=== PATIENT | male | born 1970 | race African-American/Black ===

== ENCOUNTER 2018-09-21 08:14 | Inpatient (IN) ==
[~2018-09-21 08:14] MED LIST: ceFAZolin 1,000 MG VIAL ONE; ceFAZolin 1,000 MG in SYRINGE 1 EACH IV ONE
[2018-09-21 08:37] LABS: Basophils # 0.1 10*3/uL (0.0-0.2); Basophils % 0.7 % (0.0-0.8); Eosinophils # 0.6 10*3/uL (0.0-0.87); Eosinophils % 6.4 % (0.00-10.9); Hematocrit 29.9 VOL% (42.0-52.0); Hemoglobin 9.2 GM/DL (14.0-18.0); Immature Granulocytes % 0.5 %; Immature Granulocytes Absolute 0.04 #; Lymphocytes # 1.2 10*3/uL (1.4-4.0); Lymphocytes % 13.2 % (21.2-54.2); Mean Corpuscular HGB Conc 30.8 GM/DL (32-36); Mean Corpuscular Hemoglobin 30 PG (27-34); Mean Corpuscular Volume 98.7 FL (87-102); Mean Platelet Volume 9.8 FL (9.6-12.0); Monocytes # 0.6 10*3/uL (0.11-0.8); Monocytes % 6.7 % (1.7-12.7); Neutrophils # 6.4 10*3/uL (1.4-7.4); Neutrophils % 72.5 % (38.7-73.9); Platelet Count 258 T/CUMM (130-400); Red Blood Count 3.03 MC/CUMM (3.8-5.5); White Blood Count 8.8 T/CUMM (4-12)
[2018-09-21] MEDS: SODIUM CHLORIDE 0.9% 250 ML IV SCH (08:54)
[2018-09-21 09:02] LABS: Albumin 3.5 G/DL (3.4-5.0); Bilirubin,Total 0.7 MG/DL (0.2-1.0); Calcium 8.1 MG/DL (8.5-10.1); Osmolality,Calculated 284.4 MOS/KG (273-304); Potassium 3.8 MMOL/L (3.5-5.1); Total Protein 7.3 G/DL (6.4-8.3)
[2018-09-21] MEDS ORDERED: TISSUE ADHESIVE 1 EACH APPLICATOR TOP ONE (11:40)
[2018-09-21] MEDS ORDERED: MIDAZOLAM 2 MG/2 ML VIAL ONE (12:42)
[2018-09-21] MEDS ORDERED: fentaNYL 100 MCG/2 ML VIAL ONE (12:42)
[2018-09-21] MEDS ORDERED: ONDANSETRON 4 MG/2 ML VIAL IV PRN ×2 (13:19→14:04)
[2018-09-21] MEDS ORDERED: MORPHINE 4 MG/1 ML VIAL IV PRN (13:19)
[2018-09-21] MEDS ORDERED: ROCURONIUM 100 MG/10 ML VIAL IV ONE (13:36)
[2018-09-21] MEDS ORDERED: PHENYLEPHRINE 1 MG/10 ML SYRINGE IV ONE (13:36)
[2018-09-21] MEDS ORDERED: PROPOFOL 200 MG/20 ML VIAL IV ONE (13:36)
[2018-09-21] MEDS: MEPERIDINE 25 MG/1 ML VIAL IV PRN ×2 (14:05→19:50)
[2018-09-21] MEDS: HYDROmorphone 2 MG/1 ML VIAL IV PRN ×4 (14:55→15:10)
[2018-09-21] MEDS ORDERED: PROMETHAZINE 25 MG/1 ML VIAL ONE (14:57)
[2018-09-21] MEDS ORDERED: HYDROmorphone 2 MG/1 ML VIAL ONE (14:57)
[2018-09-21] MEDS ORDERED: PROMETHAZINE INJ 25 MG in SODIUM CHLORIDE 0.9% 50 ML IV PRN (15:08)
[2018-09-21] MEDS ORDERED: EPOETIN ALFA 2,000 UNIT/1 ML VIAL IV PRN (15:58)
[2018-09-21] MEDS: CALCIUM (CARBONATE) 500 MG TABLET PO SCH (16:39)
[2018-09-21] MEDS: hydrALAZINE 25 MG TABLET PO SCH ×2 (16:39→21:29)
[2018-09-21] MEDS ORDERED: SEVELAMER CARBONATE 800 MG TABLET PO SCH (17:00)
[2018-09-22] MEDS: SODIUM CHLORIDE 0.9% 250 ML IV SCH ×2 (06:16→16:28)
[2018-09-22] MEDS: ASPIRIN CHEW 81 MG TABLET PO SCH (09:00)
[2018-09-22] MEDS: CALCIUM (CARBONATE) 500 MG TABLET PO SCH ×4 (09:48→22:52)
[2018-09-22] MEDS: PANTOPRAZOLE 40 MG TABLET PO SCH (09:48)
[2018-09-22] MEDS ORDERED: CALCIUM GLUCONATE 2,000 MG in SODIUM CHLORIDE 0.9% 100 ML IV ONE ×3 (10:00→23:30)
[2018-09-22] MEDS: hydrALAZINE 25 MG TABLET PO SCH ×3 (13:05→20:54)
[2018-09-22] MEDS: CALCITRIOL 0.5 MCG CAPSULE PO SCH (13:12)
[2018-09-23] MEDS ORDERED: CALCIUM GLUCONATE 2,000 MG in SODIUM CHLORIDE 0.9% 100 ML IV ONE (03:20)
[2018-09-23] MEDS: CALCIUM GLUCONATE 2,000 MG in SODIUM CHLORIDE 0.9% 100 ML IV PRN ×3 (07:40→21:42)
[2018-09-23] MEDS: PANTOPRAZOLE 40 MG TABLET PO SCH (09:00)
[2018-09-23] MEDS: CALCIUM (CARBONATE) 500 MG TABLET PO SCH ×4 (09:00→21:39)
[2018-09-23] MEDS: hydrALAZINE 25 MG TABLET PO SCH ×3 (09:00→21:39)
[2018-09-23] MEDS: ASPIRIN CHEW 81 MG TABLET PO SCH (09:00)
[2018-09-23] MEDS: CALCITRIOL 0.5 MCG CAPSULE PO SCH (09:00)
[2018-09-24] MEDS: hydrALAZINE 25 MG TABLET PO SCH ×3 (08:24→21:42)
[2018-09-24] MEDS: PANTOPRAZOLE 40 MG TABLET PO SCH (08:24)
[2018-09-24] MEDS: CALCITRIOL 0.5 MCG CAPSULE PO SCH (08:24)
[2018-09-24] MEDS: ASPIRIN CHEW 81 MG TABLET PO SCH (09:59)
[2018-09-24] MEDS: CALCIUM (CARBONATE) 500 MG TABLET PO SCH ×4 (09:59→21:42)
[2018-09-24] MEDS: CALCIUM GLUCONATE 2,000 MG in SODIUM CHLORIDE 0.9% 100 ML IV SCH ×2 (09:59→21:43)
[2018-09-24] MEDS: CALCIUM GLUCONATE 2,000 MG in SODIUM CHLORIDE 0.9% 100 ML IV PRN (15:31)
[2018-09-25] MEDS: hydrALAZINE 25 MG TABLET PO SCH ×2 (12:01→14:53)
[2018-09-25] MEDS: CALCIUM GLUCONATE 2,000 MG in SODIUM CHLORIDE 0.9% 100 ML IV SCH (12:01)
[2018-09-25] MEDS: CALCIUM (CARBONATE) 500 MG TABLET PO SCH ×2 (12:01→12:13)
[2018-09-25] MEDS: CALCITRIOL 0.5 MCG CAPSULE PO SCH (12:01)
[2018-09-25] MEDS: ASPIRIN CHEW 81 MG TABLET PO SCH (12:01)
[2018-09-25] MEDS: PANTOPRAZOLE 40 MG TABLET PO SCH (12:01)
[2018-09-25] MEDS ORDERED: CALCITRIOL 0.5 MCG CAPSULE PO SCH (12:14)
[2018-09-25 12:56] VITALS: BP 183/84
[2018-09-25] MEDS ORDERED: CALCIUM (CARBONATE) 500 MG TABLET PO SCH (15:00)
[2018-09-26] MEDS ORDERED: CALCIUM (CARBONATE) 500 MG TABLET PO SCH (10:00)
== END 2018-09-25 15:10 | disposition home or self-care (01) | DRG 625 ==
LOC: N.SDSINP 08:14 → N.OR 08:14 → N.5E 15:18
PROVIDERS: ADMIT Surgery; ATTEND Surgery

== ENCOUNTER 2020-04-10 19:36 | Observation (INO) ==
[2020-04-10 20:30] LABS: Basophils # 0.1 10*3/uL (0.0-0.2); Basophils % 0.7 % (0.0-0.8); Eosinophils # 0.6 10*3/uL (0.0-0.87); Eosinophils % 6.6 % (0.00-10.9); Hematocrit 31.7 VOL% (42.0-52.0); Immature Granulocytes % 0.4 %; Immature Granulocytes Absolute 0.04 #; Lymphocytes # 0.7 10*3/uL (1.4-4.0); Lymphocytes % 7.6 % (21.2-54.2); Mean Corpuscular HGB Conc 31.5 GM/DL (32-36); Mean Corpuscular Volume 101.3 FL (87-102); Mean Platelet Volume 9.8 FL (9.6-12.0); Monocytes % 6.9 % (1.7-12.7); Neutrophils % 77.8 % (38.7-73.9); Platelet Count 273 T/CUMM (130-400); Red Blood Count 3.13 MC/CUMM (3.8-5.5); Red Cell Distribution Width 14.8 % (9.3-17.3); White Blood Count 8.9 T/CUMM (4-12)
[2020-04-10 20:39] LABS: PT Patient Result 11.2 SECS (9.8-11.9)
[2020-04-10 20:50] LABS: Albumin 3.1 G/DL (3.4-5.0); Bilirubin,Total 0.4 MG/DL (0.2-1.0); Calcium 8.2 MG/DL (8.5-10.1); Osmolality,Calculated 281.5 MOS/KG (273-304); Total Protein 6.7 G/DL (6.4-8.3)
[2020-04-11] MEDS ORDERED: ACETAMINOPHEN 325 MG TABLET PO PRN (00:44)
[2020-04-11] MEDS ORDERED: ONDANSETRON 4 MG/2 ML VIAL IV PRN (00:44)
[2020-04-11] MEDS ORDERED: MORPHINE 4 MG/1 ML VIAL IV PRN (00:44)
[2020-04-11] MEDS: hydrALAZINE 25 MG TABLET PO SCH ×4 (01:29→21:21)
[2020-04-11 05:27] LABS: Calcium 8.5 MG/DL (8.5-10.1); Osmolality,Calculated 281.5 MOS/KG (273-304)
[2020-04-11] MEDS ORDERED: CLINDAMYCIN INJ 900 MG in PREMIX 1 EACH IV ONE (06:34)
[2020-04-11] MEDS ORDERED: SODIUM CHLORIDE 0.9% 250 ML IV SCH (08:00)
[2020-04-11] MEDS ORDERED: BUPIVACAINE MPF 0.25% 30 ML VIAL ONE (08:24)
[2020-04-11] MEDS ORDERED: TISSUE ADHESIVE 1 EACH APPLICATOR TOP ONE (08:24)
[2020-04-11] MEDS ORDERED: LIDOCAINE 1% 20 ML VIAL ONE (08:24)
[2020-04-11] MEDS ORDERED: HEPARIN 5,000 UNIT/1 ML VIAL ONE (08:24)
[2020-04-11] MEDS ORDERED: CLINDAMYCIN INJ 50 ML IV ONE (08:40)
[2020-04-11] MEDS: SEVELAMER CARBONATE 800 MG TABLET PO SCH ×3 (09:10→17:08)
[2020-04-11] MEDS: CINACALCET 30 MG TABLET PO SCH (09:11)
[2020-04-11] MEDS: ASPIRIN CHEW 81 MG TABLET PO SCH (09:11)
[2020-04-11] MEDS ORDERED: propofoL 200 MG/20 ML VIAL IV ONE (11:03)
[2020-04-11] MEDS ORDERED: SEVOFLURANE 1 UNIT/15 MINUTE INH ONE (11:04)
[2020-04-11] MEDS ORDERED: MIDAZOLAM 2 MG/2 ML VIAL ONE (11:04)
[2020-04-11] MEDS ORDERED: DEXAMETHASONE 4 MG/1 ML VIAL ONE (11:04)
[2020-04-11] MEDS ORDERED: fentaNYL 100 MCG/2 ML VIAL ONE (11:04)
[2020-04-11] MEDS ORDERED: ONDANSETRON 4 MG/2 ML VIAL ONE (11:04)
[2020-04-11] MEDS ORDERED: LIDOCAINE 2% 5 ML VIAL ONE (11:04)
[2020-04-11] MEDS ORDERED: ETOMIDATE 40 MG/20 ML VIAL IV ONE (11:05)
[2020-04-11] MEDS ORDERED: SODIUM CHLORIDE 0.9% 500 ML IV ONE (11:05)
[2020-04-11] MEDS ORDERED: PHENYLEPHRINE 1 MG/10 ML SYRINGE IV ONE (11:05)
[2020-04-11] MEDS ORDERED: SUCCINYLCHOLINE 200 MG/10 ML VIAL ONE (11:05)
[2020-04-11] MEDS ORDERED: HEPARIN 10,000 UNIT/10 ML VIAL IV PRN (14:28)
[2020-04-11] MEDS ORDERED: HYDROmorphone 2 MG/1 ML VIAL IV PRN (16:55)
[2020-04-12] MEDS: CINACALCET 30 MG TABLET PO SCH (08:22)
[2020-04-12] MEDS: SEVELAMER CARBONATE 800 MG TABLET PO SCH (08:22)
[2020-04-12] MEDS: ASPIRIN CHEW 81 MG TABLET PO SCH (08:22)
[2020-04-12] MEDS: hydrALAZINE 25 MG TABLET PO SCH (08:22)
[2020-04-12 08:29] VITALS: BP 125/65
== END 2020-04-12 10:42 | disposition home or self-care (01) ==
LOC: EDUNIT# → EDBD → N.EDINP 19:36 → N.ED 19:36 → N.3E 23:43
PROVIDERS: ADMIT Surgery; ATTEND Surgery

== ENCOUNTER 2020-04-21 10:00 | Inpatient (IN) ==
[2020-04-21] MEDS ORDERED: SODIUM CHLORIDE 0.9% 500 ML IV STA (16:25)
[2020-04-21] MEDS ORDERED: ONDANSETRON 4 MG/2 ML VIAL IV STA (16:25)
[2020-04-21] MEDS ORDERED: MORPHINE 4 MG/1 ML VIAL IV STA (16:25)
[2020-04-21 17:14] LABS: Basophils # 0.2 10*3/uL (0.0-0.2); Basophils % 0.5 % (0.0-0.8); Eosinophils # 0.1 10*3/uL (0.0-0.87); Eosinophils % 0.3 % (0.00-10.9); Hematocrit 23.5 VOL% (42.0-52.0); Lymphocytes # 2.3 10*3/uL (1.4-4.0); Lymphocytes % 6.4 % (21.2-54.2); Mean Corpuscular Volume 92.2 FL (87-102); Mean Platelet Volume 9.6 FL (9.6-12.0); Monocytes % 6.5 % (1.7-12.7); NRBC # 0.06 10*3/uL; Neutrophils % 79.3 % (38.7-73.9); Platelet Count 548 T/CUMM (130-400); Red Blood Count 2.55 MC/CUMM (3.8-5.5); Red Cell Distribution Width 16.7 % (9.3-17.3); White Blood Count 35.7 T/CUMM (4-12)
[2020-04-21 17:32] LABS: Bilirubin,Total 0.6 MG/DL (0.2-1.0); Calcium 9.8 MG/DL (8.5-10.1); Osmolality,Calculated 272.5 MOS/KG (273-304); Total Protein 7.9 G/DL (6.4-8.3)
[2020-04-21 17:39] LABS: Band Neutrophils 2 % (0-10); Lymphocytes 2 % (20-55); Metamyelocytes 3 %; Segmented Neutrophils 87 % (50-85); Total Cells Counted 100
[2020-04-21 17:40] LABS: Anisocytosis Slight; Macrocytosis Slight; Microcytosis Slight; Platelet Estimate Increased
[2020-04-21] MEDS ORDERED: cefTRIAXone 1,000 MG in SODIUM CHLORIDE 0.9% 100 ML IV STA (19:11)
[2020-04-21] MEDS ORDERED: GLUCAGON 1 MG VIAL IM PRN ×2 (19:20)
[2020-04-21] MEDS ORDERED: DEXTROSE 50% 25 GM/50 ML VIAL IV PRN ×2 (19:20)
[2020-04-21] MEDS ORDERED: ACETAMINOPHEN 325 MG TABLET PO PRN (19:20)
[2020-04-21] MEDS ORDERED: ALBUTEROL/IPRATROPIUM 3 ML NEB RESP TX PRN (19:20)
[2020-04-21] MEDS: AZITHROMYCIN INJ 500 MG in SODIUM CHLORIDE 0.9% 250 ML IV SCH (21:45)
[2020-04-21] MEDS: hydrALAZINE 25 MG TABLET PO SCH (21:46)
[2020-04-21] MEDS: HEPARIN 5,000 UNIT/1 ML VIAL SUBCUT SCH (21:49)
[2020-04-21] MEDS: INSULIN REGULAR 100 UNIT/ML SUBCUT SCH (23:27)
[2020-04-22] MEDS: MORPHINE 4 MG/1 ML VIAL IV PRN ×3 (00:36→13:05)
[2020-04-22] MEDS: HEPARIN 5,000 UNIT/1 ML VIAL SUBCUT SCH ×3 (04:51→21:37)
[2020-04-22 07:52] LABS: Basophils # 0.2 10*3/uL (0.0-0.2); Basophils % 0.5 % (0.0-0.8); Eosinophils # 0.2 10*3/uL (0.0-0.87); Eosinophils % 0.6 % (0.00-10.9); Hematocrit 19.9 VOL% (42.0-52.0); Hemoglobin 6.8 GM/DL (14.0-18.0); Immature Granulocytes % 7.1 %; Immature Granulocytes Absolute 2.08 #; Lymphocytes # 1.9 10*3/uL (1.4-4.0); Lymphocytes % 6.3 % (21.2-54.2); Mean Corpuscular HGB Conc 34.2 GM/DL (32-36); Mean Corpuscular Volume 92.1 FL (87-102); Mean Platelet Volume 9.7 FL (9.6-12.0); Monocytes % 8.4 % (1.7-12.7); NRBC # 0.02 10*3/uL; Neutrophils % 77.1 % (38.7-73.9); Platelet Count 494 T/CUMM (130-400); Red Blood Count 2.16 MC/CUMM (3.8-5.5); Red Cell Distribution Width 17.1 % (9.3-17.3); White Blood Count 29.5 T/CUMM (4-12)
[2020-04-22 08:11] LABS: Atypical Lymphocytes Few; Band Neutrophils 1 % (0-10); Eosinophils 1 % (0-10); Hypochromasia 2+; Lymphocytes 5 % (20-55); Microcytosis 1+; Nucleated Red Blood Cells 1 (0-5); Ovalocytes Slight; Platelet Estimate Adequate; Segmented Neutrophils 84 % (50-85); Total Cells Counted 100
[2020-04-22 08:14] LABS: Albumin 1.6 G/DL (3.4-5.0); Bilirubin,Total 1.5 MG/DL (0.2-1.0); Calcium 9.4 MG/DL (8.5-10.1); Osmolality,Calculated 279.2 MOS/KG (273-304); Total Protein 6.6 G/DL (6.4-8.3)
[2020-04-22] MEDS: PANTOPRAZOLE 40 MG TABLET PO SCH (09:02)
[2020-04-22] MEDS: hydrALAZINE 25 MG TABLET PO SCH ×3 (09:02→21:38)
[2020-04-22] MEDS: ONDANSETRON 4 MG/2 ML VIAL IV PRN ×2 (09:02→13:05)
[2020-04-22] MEDS: INSULIN REGULAR 100 UNIT/ML SUBCUT SCH ×3 (13:56→21:39)
[2020-04-22] MEDS ORDERED: VANCOMYCIN INJ 2,000 MG in SODIUM CHLORIDE 0.9% 500 ML IV ONE (17:00)
[2020-04-22] MEDS ORDERED: VANCOMYCIN INJ 750 MG in SODIUM CHLORIDE 0.9% 250 ML IV PRN (17:00)
[2020-04-22] MEDS: SODIUM HYPOCHLORITE 0.25% IRRIG 473 ML BOTTLE TOP SCH (19:10)
[2020-04-22] MEDS ORDERED: cefTRIAXone 1,000 MG in SYRINGE 1 EACH IV SCH (21:00)
[2020-04-22] MEDS: AZITHROMYCIN INJ 500 MG in SODIUM CHLORIDE 0.9% 250 ML IV SCH (21:37)
[2020-04-22 23:08] LABS: Bilirubin,Urine Negative (Negative); Blood, Urine Small mg/dL (Negative); Glucose,Urine (UA) 50 mg/dL (Negative); Ketones,Urine Negative (Negative); Nitrite,Urine Negative (Negative); Protein,Urine 100 MG/DL; RBC,Urine 4 /HPF (0-4); Renal Epithelial Cells,Urine Occasional /HPF (<1); Squamous Epithelial Cell,Urine Occasional /HPF (0-10); Urine Appearance Slightly Hazy (Clear); Urine Color Yellow (Yellow); Urine Specific Gravity 1.014 (1.001-1.035); Urine Urobilinogen < 2.0 EU/DL (0.2-1.0); WBC,Urine 3 /HPF (0-6)
[2020-04-23] MEDS: MORPHINE 4 MG/1 ML VIAL IV PRN ×3 (01:46→20:52)
[2020-04-23] MEDS: HEPARIN 5,000 UNIT/1 ML VIAL SUBCUT SCH ×3 (05:12→20:45)
[2020-04-23 06:56] LABS: Basophils # 0.2 10*3/uL (0.0-0.2); Basophils % 0.6 % (0.0-0.8); Eosinophils # 0.3 10*3/uL (0.0-0.87); Eosinophils % 1.1 % (0.00-10.9); Hematocrit 19.6 VOL% (42.0-52.0); Hemoglobin 6.5 GM/DL (14.0-18.0); Immature Granulocytes % 6.7 %; Immature Granulocytes Absolute 1.87 #; Lymphocytes % 7.3 % (21.2-54.2); Mean Corpuscular HGB Conc 33.2 GM/DL (32-36); Mean Corpuscular Volume 91.6 FL (87-102); Mean Platelet Volume 9.4 FL (9.6-12.0); Monocytes % 8.2 % (1.7-12.7); NRBC # 0.02 10*3/uL; Neutrophils % 76.1 % (38.7-73.9); Platelet Count 522 T/CUMM (130-400); Red Blood Count 2.14 MC/CUMM (3.8-5.5); Red Cell Distribution Width 17.3 % (9.3-17.3)
[2020-04-23 07:17] LABS: Calcium 9.7 MG/DL (8.5-10.1); Osmolality,Calculated 278.4 MOS/KG (273-304)
[2020-04-23 07:19] LABS: Lymphocytes 3 % (20-55); Metamyelocytes 5 %; Segmented Neutrophils 90 % (50-85); Total Cells Counted 100
[2020-04-23 07:20] LABS: Polychromasia Slight
[2020-04-23 07:21] LABS: Hypochromasia 4+; Ovalocytes Few; Schistocytes Few; Target Cells 1+
[2020-04-23 07:22] LABS: Platelet Estimate Increased
[2020-04-23] MEDS: ONDANSETRON 4 MG/2 ML VIAL IV PRN (08:15)
[2020-04-23] MEDS ORDERED: AZITHROMYCIN 250 MG TABLET PO SCH (09:00)
[2020-04-23] MEDS: hydrALAZINE 25 MG TABLET PO SCH ×3 (09:11→20:45)
[2020-04-23] MEDS: PANTOPRAZOLE 40 MG TABLET PO SCH (09:11)
[2020-04-23] MEDS: INSULIN REGULAR 100 UNIT/ML SUBCUT SCH ×4 (09:11→20:45)
[2020-04-23] MEDS: SODIUM HYPOCHLORITE 0.25% IRRIG 473 ML BOTTLE TOP SCH (09:12)
[2020-04-23] MEDS ORDERED: LIDOCAINE 1%/EPI INJ 20 ML VIAL ONE (12:17)
[2020-04-23] MEDS ORDERED: BUPIVACAINE MPF 0.25% 30 ML VIAL ONE (12:17)
[2020-04-23] MEDS ORDERED: SODIUM CHLORIDE 0.9% 250 ML IV SCH (13:30)
[2020-04-23] MEDS ORDERED: LIDOCAINE 2% 5 ML VIAL ONE (14:05)
[2020-04-23] MEDS ORDERED: MIDAZOLAM 2 MG/2 ML VIAL ONE (14:05)
[2020-04-23] MEDS ORDERED: fentaNYL 100 MCG/2 ML VIAL ONE (14:05)
[2020-04-23] MEDS ORDERED: propofoL 200 MG/20 ML VIAL IV ONE (14:05)
[2020-04-23] MEDS ORDERED: ETOMIDATE 40 MG/20 ML VIAL IV ONE (14:05)
[2020-04-23] MEDS ORDERED: VANCOMYCIN INJ 750 MG in SODIUM CHLORIDE 0.9% 250 ML IV ONE (17:00)
[2020-04-24] MEDS: MORPHINE 4 MG/1 ML VIAL IV PRN ×3 (04:00→21:42)
[2020-04-24] MEDS: HEPARIN 5,000 UNIT/1 ML VIAL SUBCUT SCH ×3 (05:27→21:42)
[2020-04-24 05:45] LABS: Basophils # 0.1 10*3/uL (0.0-0.2); Basophils % 0.6 % (0.0-0.8); Eosinophils # 0.2 10*3/uL (0.0-0.87); Eosinophils % 0.9 % (0.00-10.9); Hematocrit 19.5 VOL% (42.0-52.0); Immature Granulocytes % 6.7 %; Immature Granulocytes Absolute 1.44 #; Lymphocytes # 2.1 10*3/uL (1.4-4.0); Lymphocytes % 9.6 % (21.2-54.2); Mean Corpuscular HGB Conc 32.3 GM/DL (32-36); Mean Corpuscular Volume 93.3 FL (87-102); Mean Platelet Volume 9.2 FL (9.6-12.0); Monocytes % 10.1 % (1.7-12.7); Neutrophils % 72.1 % (38.7-73.9); Platelet Count 528 T/CUMM (130-400); Red Blood Count 2.09 MC/CUMM (3.8-5.5); Red Cell Distribution Width 17.8 % (9.3-17.3); White Blood Count 21.7 T/CUMM (4-12)
[2020-04-24 05:48] LABS: Hemoglobin 6.3 GM/DL (14.0-18.0)
[2020-04-24 06:12] LABS: Anisocytosis 2+; Band Neutrophils 3 % (0-10); Eosinophils 1 % (0-10); Lymphocytes 10 % (20-55); Metamyelocytes 1 %; Myelocytes 2 %; Segmented Neutrophils 73 % (50-85); Total Cells Counted 100
[2020-04-24 06:13] LABS: Macrocytosis 1+; Poikilocytosis Slight; Polychromasia Slight; Target Cells Few
[2020-04-24 06:14] LABS: Calcium 9.7 MG/DL (8.5-10.1); Osmolality,Calculated 276.1 MOS/KG (273-304)
[2020-04-24] MEDS: INSULIN REGULAR 100 UNIT/ML SUBCUT SCH ×4 (07:48→21:43)
[2020-04-24] MEDS: PANTOPRAZOLE 40 MG TABLET PO SCH (09:27)
[2020-04-24] MEDS: hydrALAZINE 25 MG TABLET PO SCH ×3 (09:27→21:41)
[2020-04-24] MEDS: SODIUM HYPOCHLORITE 0.25% IRRIG 473 ML BOTTLE TOP SCH (15:00)
[2020-04-24] MEDS ORDERED: EPOETIN ALFA-EPBX 10,000 UNIT/ML VIAL SUBCUT ONE ×2 (15:42→17:30)
[2020-04-25] MEDS: HEPARIN 5,000 UNIT/1 ML VIAL SUBCUT SCH ×3 (04:58→21:25)
[2020-04-25 06:06] LABS: Basophils # 0.1 10*3/uL (0.0-0.2); Basophils % 0.5 % (0.0-0.8); Eosinophils # 0.3 10*3/uL (0.0-0.87); Eosinophils % 1.1 % (0.00-10.9); Hematocrit 20.7 VOL% (42.0-52.0); Hemoglobin 6.6 GM/DL (14.0-18.0); Immature Granulocytes Absolute 1.48 #; Lymphocytes # 2.4 10*3/uL (1.4-4.0); Lymphocytes % 9.8 % (21.2-54.2); Mean Corpuscular HGB Conc 31.9 GM/DL (32-36); Mean Corpuscular Volume 94.5 FL (87-102); Monocytes % 8.9 % (1.7-12.7); Neutrophils % 73.7 % (38.7-73.9); Platelet Count 597 T/CUMM (130-400); Red Blood Count 2.19 MC/CUMM (3.8-5.5); White Blood Count 24.5 T/CUMM (4-12)
[2020-04-25 06:26] LABS: Band Neutrophils 1 % (0-10); Eosinophils 3 % (0-10); Hypochromasia 2+; Lymphocytes 8 % (20-55); Platelet Estimate Adequate; Segmented Neutrophils 77 % (50-85); Total Cells Counted 100
[2020-04-25 06:27] LABS: Macrocytosis Slight; Ovalocytes Slight; Polychromasia Slight
[2020-04-25] MEDS: MORPHINE 4 MG/1 ML VIAL IV PRN ×2 (07:47→21:56)
[2020-04-25] MEDS: INSULIN REGULAR 100 UNIT/ML SUBCUT SCH ×4 (08:08→20:46)
[2020-04-25 08:12] LABS: Calcium 9.7 MG/DL (8.5-10.1)
[2020-04-25 08:13] LABS: Osmolality,Calculated 273.7 MOS/KG (273-304)
[2020-04-25] MEDS ORDERED: SODIUM CHLORIDE 0.9% 1,000 ML IV PRN (09:14)
[2020-04-25] MEDS: PANTOPRAZOLE 40 MG TABLET PO SCH (09:27)
[2020-04-25] MEDS: hydrALAZINE 25 MG TABLET PO SCH ×3 (09:27→21:24)
[2020-04-25] MEDS: SODIUM HYPOCHLORITE 0.25% IRRIG 473 ML BOTTLE TOP SCH (10:29)
[2020-04-25] MEDS ORDERED: HEPARIN LOCK FLUSH 500 UNIT/5 ML SYRINGE IV ONE (12:00)
[2020-04-25] MEDS ORDERED: TISSUE ADHESIVE 1 EACH APPLICATOR TOP ONE (12:09)
[2020-04-25] MEDS ORDERED: fentaNYL 100 MCG/2 ML VIAL IV ONE (12:38)
[2020-04-25] MEDS ORDERED: MIDAZOLAM 2 MG/2 ML VIAL IV ONE (12:38)
[2020-04-25] MEDS ORDERED: fentaNYL 100 MCG/2 ML VIAL ONE (12:43)
[2020-04-25] MEDS ORDERED: MIDAZOLAM 2 MG/2 ML VIAL ONE (12:43)
[2020-04-25] MEDS ORDERED: HEPARIN LOCK FLUSH 500 UNIT/5 ML SYRINGE IV PRN (14:13)
[2020-04-25] MEDS ORDERED: HEPARIN 10,000 UNIT/10 ML VIAL IV SCH (16:30)
[2020-04-25] MEDS ORDERED: VANCOMYCIN INJ 750 MG in SODIUM CHLORIDE 0.9% 250 ML IV ONE (17:00)
[2020-04-25] MEDS: NIFEdipine 10 MG CAPSULE PO PRN (18:30)
[2020-04-26] MEDS: MORPHINE 4 MG/1 ML VIAL IV PRN ×2 (01:46→06:26)
[2020-04-26] MEDS: HEPARIN 5,000 UNIT/1 ML VIAL SUBCUT SCH ×4 (04:33→21:47)
[2020-04-26 05:49] LABS: Basophils # 0.1 10*3/uL (0.0-0.2); Basophils % 0.5 % (0.0-0.8); Eosinophils # 0.3 10*3/uL (0.0-0.87); Eosinophils % 1.6 % (0.00-10.9); Hematocrit 20.2 VOL% (42.0-52.0); Hemoglobin 6.5 GM/DL (14.0-18.0); Immature Granulocytes % 5.6 %; Immature Granulocytes Absolute 1.07 #; Lymphocytes # 1.6 10*3/uL (1.4-4.0); Lymphocytes % 8.3 % (21.2-54.2); Mean Corpuscular HGB Conc 32.2 GM/DL (32-36); Mean Platelet Volume 9.2 FL (9.6-12.0); Monocytes % 9.6 % (1.7-12.7); Neutrophils % 74.4 % (38.7-73.9); Platelet Count 529 T/CUMM (130-400); Red Blood Count 2.15 MC/CUMM (3.8-5.5); Red Cell Distribution Width 17.5 % (9.3-17.3); White Blood Count 18.9 T/CUMM (4-12)
[2020-04-26 06:16] LABS: Calcium 9.7 MG/DL (8.5-10.1); Osmolality,Calculated 277.2 MOS/KG (273-304)
[2020-04-26 06:39] LABS: Band Neutrophils 2 % (0-10); Eosinophils 8 % (0-10); Lymphocytes 9 % (20-55); Segmented Neutrophils 74 % (50-85); Total Cells Counted 100
[2020-04-26 06:40] LABS: Anisocytosis 2+; Macrocytosis 1+; Platelet Estimate Increased; Spherocytes Few
[2020-04-26] MEDS: INSULIN REGULAR 100 UNIT/ML SUBCUT SCH ×4 (08:17→21:28)
[2020-04-26] MEDS ORDERED: SODIUM CHLORIDE 0.9% 1,000 ML IV PRN (08:57)
[2020-04-26] MEDS: hydrALAZINE 25 MG TABLET PO SCH ×3 (12:26→21:45)
[2020-04-26] MEDS: PANTOPRAZOLE 40 MG TABLET PO SCH (12:26)
[2020-04-26] MEDS: SODIUM HYPOCHLORITE 0.25% IRRIG 473 ML BOTTLE TOP SCH (12:27)
[2020-04-26] MEDS: HYDROmorphone 2 MG/1 ML VIAL IV PRN (15:28)
[2020-04-27] MEDS: HEPARIN 5,000 UNIT/1 ML VIAL SUBCUT SCH ×3 (05:23→20:24)
[2020-04-27] MEDS: NIFEdipine 10 MG CAPSULE PO PRN (05:24)
[2020-04-27 06:35] LABS: Basophils # 0.1 10*3/uL (0.0-0.2); Basophils % 0.7 % (0.0-0.8); Eosinophils # 0.7 10*3/uL (0.0-0.87); Eosinophils % 3.9 % (0.00-10.9); Hematocrit 26.3 VOL% (42.0-52.0); Hemoglobin 8.7 GM/DL (14.0-18.0); Immature Granulocytes Absolute 0.88 #; Lymphocytes # 1.8 10*3/uL (1.4-4.0); Mean Corpuscular HGB Conc 33.1 GM/DL (32-36); Mean Corpuscular Volume 92.6 FL (87-102); Mean Platelet Volume 9.3 FL (9.6-12.0); Monocytes % 8.8 % (1.7-12.7); NRBC # 0.02 10*3/uL; Neutrophils % 71.6 % (38.7-73.9); Platelet Count 483 T/CUMM (130-400); Red Blood Count 2.84 MC/CUMM (3.8-5.5); Red Cell Distribution Width 17.2 % (9.3-17.3); White Blood Count 17.6 T/CUMM (4-12)
[2020-04-27 06:56] LABS: Calcium 9.9 MG/DL (8.5-10.1); Osmolality,Calculated 273.1 MOS/KG (273-304)
[2020-04-27] MEDS: INSULIN REGULAR 100 UNIT/ML SUBCUT SCH ×4 (08:06→20:00)
[2020-04-27 08:19] LABS: Band Neutrophils 2 % (0-10); Eosinophils 1 % (0-10); Lymphocytes 10 % (20-55); Platelet Estimate Normal; Segmented Neutrophils 81 % (50-85); Smudge Cells Few; Total Cells Counted 100
[2020-04-27 08:20] LABS: Anisocytosis 2+; Macrocytosis 1+
[2020-04-27] MEDS: hydrALAZINE 25 MG TABLET PO SCH ×3 (09:23→20:24)
[2020-04-27] MEDS: PANTOPRAZOLE 40 MG TABLET PO SCH (09:23)
[2020-04-27] MEDS: HYDROmorphone 2 MG/1 ML VIAL IV PRN ×2 (09:24→15:35)
[2020-04-27] MEDS: SODIUM HYPOCHLORITE 0.25% IRRIG 473 ML BOTTLE TOP SCH (09:34)
[2020-04-27] MEDS: CYCLOBENZAPRINE 10 MG TABLET PO SCH (20:23)
[2020-04-28] MEDS: HEPARIN 5,000 UNIT/1 ML VIAL SUBCUT SCH ×3 (05:09→21:38)
[2020-04-28 06:49] LABS: Basophils # 0.1 10*3/uL (0.0-0.2); Basophils % 0.8 % (0.0-0.8); Eosinophils # 0.8 10*3/uL (0.0-0.87); Eosinophils % 4.6 % (0.00-10.9); Hematocrit 27.1 VOL% (42.0-52.0); Hemoglobin 8.6 GM/DL (14.0-18.0); Immature Granulocytes % 4.4 %; Immature Granulocytes Absolute 0.81 #; Lymphocytes # 1.8 10*3/uL (1.4-4.0); Lymphocytes % 9.5 % (21.2-54.2); Mean Corpuscular HGB Conc 31.7 GM/DL (32-36); Mean Corpuscular Volume 93.8 FL (87-102); Mean Platelet Volume 8.9 FL (9.6-12.0); Monocytes % 8.4 % (1.7-12.7); Neutrophils % 72.3 % (38.7-73.9); Platelet Count 478 T/CUMM (130-400); Red Blood Count 2.89 MC/CUMM (3.8-5.5); Red Cell Distribution Width 17.1 % (9.3-17.3); White Blood Count 18.4 T/CUMM (4-12)
[2020-04-28 07:14] LABS: Band Neutrophils 1 % (0-10); Eosinophils 9 % (0-10); Lymphocytes 11 % (20-55); Platelet Estimate Normal; Segmented Neutrophils 71 % (50-85); Total Cells Counted 100
[2020-04-28 07:15] LABS: Anisocytosis 2+; Calcium 9.5 MG/DL (8.5-10.1); Macrocytosis 1+; Osmolality,Calculated 273.4 MOS/KG (273-304); Polychromasia Slight
[2020-04-28] MEDS: INSULIN REGULAR 100 UNIT/ML SUBCUT SCH ×4 (07:49→22:17)
[2020-04-28] MEDS: HYDROmorphone 2 MG/1 ML VIAL IV PRN ×2 (08:20→18:22)
[2020-04-28] MEDS: PANTOPRAZOLE 40 MG TABLET PO SCH (08:37)
[2020-04-28] MEDS: CYCLOBENZAPRINE 10 MG TABLET PO SCH ×3 (08:37→21:37)
[2020-04-28] MEDS: SODIUM HYPOCHLORITE 0.25% IRRIG 473 ML BOTTLE TOP SCH (10:27)
[2020-04-28] MEDS: hydrALAZINE 25 MG TABLET PO SCH ×4 (12:36→21:38)
[2020-04-28] MEDS: ONDANSETRON 4 MG/2 ML VIAL IV PRN (13:48)
[2020-04-28] MEDS ORDERED: MAGNESIUM CITRATE 300 ML BOTTLE PO ONE (14:12)
[2020-04-28] MEDS ORDERED: VANCOMYCIN INJ 750 MG in SODIUM CHLORIDE 0.9% 250 ML IV ONE (17:00)
[2020-04-29] MEDS: ONDANSETRON 4 MG/2 ML VIAL IV PRN (05:19)
[2020-04-29] MEDS: HEPARIN 5,000 UNIT/1 ML VIAL SUBCUT SCH ×3 (05:22→22:11)
[2020-04-29 06:02] LABS: Basophils # 0.1 10*3/uL (0.0-0.2); Basophils % 0.9 % (0.0-0.8); Eosinophils # 0.6 10*3/uL (0.0-0.87); Eosinophils % 4.1 % (0.00-10.9); Hematocrit 26.7 VOL% (42.0-52.0); Hemoglobin 8.4 GM/DL (14.0-18.0); Immature Granulocytes % 3.5 %; Immature Granulocytes Absolute 0.55 #; Lymphocytes # 1.5 10*3/uL (1.4-4.0); Lymphocytes % 9.5 % (21.2-54.2); Mean Corpuscular HGB Conc 31.5 GM/DL (32-36); Mean Corpuscular Volume 95.4 FL (87-102); Mean Platelet Volume 9.2 FL (9.6-12.0); Monocytes % 8.9 % (1.7-12.7); Neutrophils % 73.1 % (38.7-73.9); Platelet Count 448 T/CUMM (130-400); White Blood Count 15.6 T/CUMM (4-12)
[2020-04-29 06:19] LABS: Calcium 9.7 MG/DL (8.5-10.1); Osmolality,Calculated 271.4 MOS/KG (273-304)
[2020-04-29 06:27] LABS: Band Neutrophils 1 % (0-10); Eosinophils 4 % (0-10); Hypochromasia 2+; Lymphocytes 12 % (20-55); Microcytosis 1+; Platelet Estimate Adequate; Segmented Neutrophils 75 % (50-85); Total Cells Counted 100
[2020-04-29] MEDS ORDERED: SODIUM CHLORIDE 0.9% 1,000 ML IV SCH (07:00)
[2020-04-29] MEDS ORDERED: hydrALAZINE 20 MG/1 ML VIAL IV ONE (09:10)
[2020-04-29] MEDS: INSULIN REGULAR 100 UNIT/ML SUBCUT SCH ×4 (09:26→22:18)
[2020-04-29] MEDS: SODIUM HYPOCHLORITE 0.25% IRRIG 473 ML BOTTLE TOP SCH (09:26)
[2020-04-29] MEDS: ONDANSETRON 4 MG/2 ML VIAL IV SCH ×2 (10:47→16:27)
[2020-04-29] MEDS: hydrALAZINE 25 MG TABLET PO SCH ×3 (10:47→23:55)
[2020-04-29] MEDS: CYCLOBENZAPRINE 10 MG TABLET PO SCH ×3 (10:51→22:11)
[2020-04-29] MEDS: PANTOPRAZOLE 40 MG TABLET PO SCH (10:51)
[2020-04-29] MEDS ORDERED: NALOXONE 0.4 MG/ML VIAL IV PRN (17:28)
[2020-04-29] MEDS ORDERED: PROMETHAZINE INJ 12.5 MG in SODIUM CHLORIDE 0.9% 50 ML IV PRN (17:31)
[2020-04-29] MEDS: NIFEdipine 10 MG CAPSULE PO PRN (17:40)
[2020-04-29] MEDS: HYDROmorphone PCA 30 MG/30 ML SYRINGE IV SCH (18:10)
[2020-04-29] MEDS: GABAPENTIN 300 MG CAPSULE PO SCH (22:10)
[2020-04-30] MEDS: ONDANSETRON 4 MG/2 ML VIAL IV SCH ×2 (01:36→09:17)
[2020-04-30] MEDS ORDERED: VANCOMYCIN INJ 750 MG in SODIUM CHLORIDE 0.9% 250 ML IV PRN (06:11)
[2020-04-30 06:22] LABS: Basophils # 0.2 10*3/uL (0.0-0.2); Basophils % 1.3 % (0.0-0.8); Eosinophils # 0.8 10*3/uL (0.0-0.87); Eosinophils % 5.3 % (0.00-10.9); Hematocrit 29.3 VOL% (42.0-52.0); Hemoglobin 9.1 GM/DL (14.0-18.0); Immature Granulocytes % 3.1 %; Immature Granulocytes Absolute 0.46 #; Lymphocytes # 1.6 10*3/uL (1.4-4.0); Lymphocytes % 10.9 % (21.2-54.2); Mean Corpuscular HGB Conc 31.1 GM/DL (32-36); Mean Corpuscular Volume 94.5 FL (87-102); Mean Platelet Volume 9.1 FL (9.6-12.0); Monocytes % 9.4 % (1.7-12.7); Platelet Count 460 T/CUMM (130-400); Red Cell Distribution Width 16.9 % (9.3-17.3)
[2020-04-30 06:59] LABS: Calcium 9.6 MG/DL (8.5-10.1); Osmolality,Calculated 277.1 MOS/KG (273-304)
[2020-04-30] MEDS: INSULIN REGULAR 100 UNIT/ML SUBCUT SCH ×4 (07:12→21:31)
[2020-04-30] MEDS: HEPARIN 5,000 UNIT/1 ML VIAL SUBCUT SCH ×3 (07:34→21:22)
[2020-04-30] MEDS ORDERED: METOPROLOL TARTRATE 5 MG/5 ML VIAL IV ONE (09:13)
[2020-04-30] MEDS: ONDANSETRON 4 MG/2 ML VIAL IV PRN (09:17)
[2020-04-30] MEDS: PANTOPRAZOLE 40 MG TABLET PO SCH (09:40)
[2020-04-30] MEDS: CYCLOBENZAPRINE 10 MG TABLET PO SCH ×3 (09:40→21:21)
[2020-04-30] MEDS: hydrALAZINE 25 MG TABLET PO SCH ×3 (09:40→21:21)
[2020-04-30] MEDS: SODIUM HYPOCHLORITE 0.25% IRRIG 473 ML BOTTLE TOP SCH (09:47)
[2020-04-30] MEDS ORDERED: propofoL 200 MG/20 ML VIAL IV ONE (12:29)
[2020-04-30] MEDS ORDERED: LIDOCAINE 2% 5 ML VIAL ONE (12:29)
[2020-04-30] MEDS ORDERED: VANCOMYCIN INJ 750 MG in SODIUM CHLORIDE 0.9% 250 ML IV ONE (17:00)
[2020-04-30] MEDS: HYDROmorphone PCA 30 MG/30 ML SYRINGE IV SCH (19:34)
[2020-04-30] MEDS ORDERED: DOCUSATE SODIUM 100 MG CAPSULE PO PRN (21:16)
[2020-04-30] MEDS: GABAPENTIN 300 MG CAPSULE PO SCH (21:21)
[2020-05-01] MEDS: HEPARIN 5,000 UNIT/1 ML VIAL SUBCUT SCH ×3 (05:36→22:05)
[2020-05-01] MEDS: INSULIN REGULAR 100 UNIT/ML SUBCUT SCH ×3 (07:57→15:51)
[2020-05-01] MEDS: hydrALAZINE 25 MG TABLET PO SCH ×3 (09:30→22:03)
[2020-05-01] MEDS: CYCLOBENZAPRINE 10 MG TABLET PO SCH ×3 (09:30→22:04)
[2020-05-01] MEDS: PANTOPRAZOLE 40 MG TABLET PO SCH (09:30)
[2020-05-01] MEDS: SODIUM HYPOCHLORITE 0.25% IRRIG 473 ML BOTTLE TOP SCH (09:31)
[2020-05-01] MEDS ORDERED: INFLUENZA VIRUS VACCINE 0.5 ML SYRINGE IM ONE (13:35)
[2020-05-01] MEDS: HYDROmorphone PCA 30 MG/30 ML SYRINGE IV SCH (16:39)
[2020-05-01] MEDS: GABAPENTIN 300 MG CAPSULE PO SCH (22:05)
[2020-05-02] MEDS: INSULIN REGULAR 100 UNIT/ML SUBCUT SCH ×5 (00:28→21:13)
[2020-05-02 05:25] LABS: Basophils # 0.2 10*3/uL (0.0-0.2); Basophils % 1.1 % (0.0-0.8); Eosinophils # 0.6 10*3/uL (0.0-0.87); Eosinophils % 4.3 % (0.00-10.9); Hematocrit 29.2 VOL% (42.0-52.0); Hemoglobin 9.1 GM/DL (14.0-18.0); Immature Granulocytes % 1.9 %; Immature Granulocytes Absolute 0.26 #; Lymphocytes # 1.5 10*3/uL (1.4-4.0); Lymphocytes % 10.7 % (21.2-54.2); Mean Corpuscular HGB Conc 31.2 GM/DL (32-36); Mean Corpuscular Volume 95.4 FL (87-102); Mean Platelet Volume 9.3 FL (9.6-12.0); Platelet Count 419 T/CUMM (130-400); Red Blood Count 3.06 MC/CUMM (3.8-5.5); Red Cell Distribution Width 16.6 % (9.3-17.3); White Blood Count 13.7 T/CUMM (4-12)
[2020-05-02 05:45] LABS: Calcium 10.3 MG/DL (8.5-10.1); Osmolality,Calculated 276.1 MOS/KG (273-304)
[2020-05-02] MEDS: HEPARIN 5,000 UNIT/1 ML VIAL SUBCUT SCH ×3 (06:31→21:17)
[2020-05-02] MEDS: SODIUM HYPOCHLORITE 0.25% IRRIG 473 ML BOTTLE TOP SCH (08:47)
[2020-05-02] MEDS: CYCLOBENZAPRINE 10 MG TABLET PO SCH ×3 (08:47→21:12)
[2020-05-02] MEDS: PANTOPRAZOLE 40 MG TABLET PO SCH (08:47)
[2020-05-02] MEDS: hydrALAZINE 25 MG TABLET PO SCH ×3 (08:47→21:14)
[2020-05-02] MEDS: HYDROmorphone PCA 30 MG/30 ML SYRINGE IV SCH (16:41)
[2020-05-02] MEDS ORDERED: VANCOMYCIN INJ 750 MG in SODIUM CHLORIDE 0.9% 250 ML IV ONE (17:00)
[2020-05-02] MEDS: GABAPENTIN 300 MG CAPSULE PO SCH (21:13)
[2020-05-03] MEDS: HEPARIN 5,000 UNIT/1 ML VIAL SUBCUT SCH ×3 (05:26→21:14)
[2020-05-03 06:09] LABS: Basophils # 0.2 10*3/uL (0.0-0.2); Basophils % 1.4 % (0.0-0.8); Eosinophils # 0.5 10*3/uL (0.0-0.87); Eosinophils % 3.9 % (0.00-10.9); Hematocrit 27.5 VOL% (42.0-52.0); Hemoglobin 8.5 GM/DL (14.0-18.0); Immature Granulocytes % 1.7 %; Immature Granulocytes Absolute 0.22 #; Lymphocytes # 1.5 10*3/uL (1.4-4.0); Lymphocytes % 11.4 % (21.2-54.2); Mean Corpuscular HGB Conc 30.9 GM/DL (32-36); Mean Corpuscular Volume 95.8 FL (87-102); Mean Platelet Volume 9.1 FL (9.6-12.0); Neutrophils % 70.6 % (38.7-73.9); Platelet Count 370 T/CUMM (130-400); Red Blood Count 2.87 MC/CUMM (3.8-5.5); Red Cell Distribution Width 16.1 % (9.3-17.3)
[2020-05-03 06:28] LABS: Calcium 10.2 MG/DL (8.5-10.1); Osmolality,Calculated 267.5 MOS/KG (273-304)
[2020-05-03] MEDS: CYCLOBENZAPRINE 10 MG TABLET PO SCH ×3 (09:20→21:14)
[2020-05-03] MEDS: PANTOPRAZOLE 40 MG TABLET PO SCH (09:20)
[2020-05-03] MEDS: hydrALAZINE 25 MG TABLET PO SCH ×3 (09:20→21:14)
[2020-05-03] MEDS: INSULIN REGULAR 100 UNIT/ML SUBCUT SCH ×4 (10:31→21:54)
[2020-05-03] MEDS: SODIUM HYPOCHLORITE 0.25% IRRIG 473 ML BOTTLE TOP SCH (11:50)
[2020-05-03] MEDS: METOPROLOL TARTRATE 25 MG TABLET PO SCH ×2 (12:25→21:14)
[2020-05-03] MEDS: HYDROmorphone PCA 30 MG/30 ML SYRINGE IV SCH (17:28)
[2020-05-03] MEDS: GABAPENTIN 300 MG CAPSULE PO SCH (21:14)
[2020-05-04] MEDS: HEPARIN 5,000 UNIT/1 ML VIAL SUBCUT SCH ×3 (05:04→22:16)
[2020-05-04 05:49] LABS: Basophils # 0.1 10*3/uL (0.0-0.2); Basophils % 1.1 % (0.0-0.8); Eosinophils # 0.6 10*3/uL (0.0-0.87); Eosinophils % 4.4 % (0.00-10.9); Hematocrit 28.4 VOL% (42.0-52.0); Hemoglobin 8.7 GM/DL (14.0-18.0); Immature Granulocytes % 1.3 %; Immature Granulocytes Absolute 0.17 #; Lymphocytes # 1.5 10*3/uL (1.4-4.0); Lymphocytes % 11.9 % (21.2-54.2); Mean Corpuscular HGB Conc 30.6 GM/DL (32-36); Mean Platelet Volume 9.5 FL (9.6-12.0); Monocytes % 9.3 % (1.7-12.7); Platelet Count 400 T/CUMM (130-400); Red Blood Count 2.99 MC/CUMM (3.8-5.5); Red Cell Distribution Width 16.1 % (9.3-17.3); White Blood Count 12.7 T/CUMM (4-12)
[2020-05-04 06:21] LABS: Calcium 9.6 MG/DL (8.5-10.1); Osmolality,Calculated 273.2 MOS/KG (273-304)
[2020-05-04] MEDS: hydrALAZINE 25 MG TABLET PO SCH ×3 (10:29→21:32)
[2020-05-04] MEDS: CYCLOBENZAPRINE 10 MG TABLET PO SCH ×3 (10:29→21:32)
[2020-05-04] MEDS: PANTOPRAZOLE 40 MG TABLET PO SCH (10:29)
[2020-05-04] MEDS: METOPROLOL TARTRATE 25 MG TABLET PO SCH ×2 (10:30→21:32)
[2020-05-04] MEDS: INSULIN REGULAR 100 UNIT/ML SUBCUT SCH ×4 (11:19→22:16)
[2020-05-04] MEDS: SODIUM HYPOCHLORITE 0.25% IRRIG 473 ML BOTTLE TOP SCH (12:35)
[2020-05-04] MEDS: HYDROmorphone PCA 30 MG/30 ML SYRINGE IV SCH (19:34)
[2020-05-04] MEDS: GABAPENTIN 300 MG CAPSULE PO SCH (21:32)
[2020-05-05] MEDS: HEPARIN 5,000 UNIT/1 ML VIAL SUBCUT SCH ×3 (06:06→20:54)
[2020-05-05 06:25] LABS: Calcium 9.8 MG/DL (8.5-10.1); Osmolality,Calculated 273.5 MOS/KG (273-304)
[2020-05-05] MEDS: CYCLOBENZAPRINE 10 MG TABLET PO SCH ×3 (12:49→20:54)
[2020-05-05] MEDS: PANTOPRAZOLE 40 MG TABLET PO SCH (12:50)
[2020-05-05] MEDS: SODIUM HYPOCHLORITE 0.25% IRRIG 473 ML BOTTLE TOP SCH (12:50)
[2020-05-05] MEDS: METOPROLOL TARTRATE 25 MG TABLET PO SCH ×2 (12:50→20:54)
[2020-05-05] MEDS: hydrALAZINE 25 MG TABLET PO SCH ×3 (12:50→20:54)
[2020-05-05] MEDS: INSULIN REGULAR 100 UNIT/ML SUBCUT SCH ×4 (14:51→20:55)
[2020-05-05] MEDS ORDERED: VANCOMYCIN INJ 750 MG in SODIUM CHLORIDE 0.9% 250 ML IV ONE (17:00)
[2020-05-05] MEDS: oxyCODONE/ACETAMINOPHEN 5-325 MG TABLET PO PRN (17:26)
[2020-05-05] MEDS: GABAPENTIN 300 MG CAPSULE PO SCH (20:54)
[2020-05-06] MEDS: HEPARIN 5,000 UNIT/1 ML VIAL SUBCUT SCH ×2 (04:55→13:03)
[2020-05-06] MEDS: oxyCODONE/ACETAMINOPHEN 5-325 MG TABLET PO PRN ×2 (06:06→10:43)
[2020-05-06 06:58] LABS: Basophils # 0.2 10*3/uL (0.0-0.2); Basophils % 1.7 % (0.0-0.8); Eosinophils # 0.6 10*3/uL (0.0-0.87); Eosinophils % 4.7 % (0.00-10.9); Hematocrit 27.2 VOL% (42.0-52.0); Hemoglobin 8.4 GM/DL (14.0-18.0); Immature Granulocytes % 1.1 %; Immature Granulocytes Absolute 0.13 #; Lymphocytes # 1.6 10*3/uL (1.4-4.0); Mean Corpuscular HGB Conc 30.9 GM/DL (32-36); Mean Corpuscular Volume 95.4 FL (87-102); Mean Platelet Volume 9.2 FL (9.6-12.0); Monocytes % 10.3 % (1.7-12.7); Neutrophils % 69.2 % (38.7-73.9); Platelet Count 417 T/CUMM (130-400); Red Blood Count 2.85 MC/CUMM (3.8-5.5); Red Cell Distribution Width 15.8 % (9.3-17.3); White Blood Count 12.3 T/CUMM (4-12)
[2020-05-06 07:20] LABS: Calcium 9.8 MG/DL (8.5-10.1); Osmolality,Calculated 273.1 MOS/KG (273-304)
[2020-05-06] MEDS: INSULIN REGULAR 100 UNIT/ML SUBCUT SCH ×3 (07:43→18:29)
[2020-05-06] MEDS: METOPROLOL TARTRATE 25 MG TABLET PO SCH (09:07)
[2020-05-06] MEDS: CYCLOBENZAPRINE 10 MG TABLET PO SCH ×2 (09:07→16:46)
[2020-05-06] MEDS: hydrALAZINE 25 MG TABLET PO SCH ×2 (09:07→16:46)
[2020-05-06] MEDS: PANTOPRAZOLE 40 MG TABLET PO SCH (09:07)
[2020-05-06] MEDS: SODIUM HYPOCHLORITE 0.25% IRRIG 473 ML BOTTLE TOP SCH (09:08)
[2020-05-06] MEDS ORDERED: oxyCODONE IR 5 MG TABLET PO PRN (11:58)
[2020-05-06 18:48] VITALS: BP 139/99
== END 2020-05-06 17:17 | disposition home health service (06) | DRG 356 ==
LOC: N.EDINP 10:00 → N.ED 10:00 → N.3E 20:38 → SUATTDRO 04-22 13:41
PROVIDERS: ADMIT Internal Medicine; ATTEND Internal Medicine